=== PATIENT | male | born 1980 | race Caucasian/White ===

== ENCOUNTER 2024-11-18 12:22 | Inpatient (IN) | payer OTHER ==
[~2024-11-18 12:22] MED LIST: NICOTINE 14 MG/24 HOURS TOPICAL PATCH TD SCH
[2024-11-18 13:07] VITALS: BMI 26.6
[2024-11-18] MEDS ORDERED: methaDONE HCL 10 MG TABLET (FOR DETOX USE ONLY) PO PRN (13:12)
[2024-11-18] MEDS ORDERED: MAG HYDROX/AL HYDROX/SIMETH 30 ML UNIT-DOSE CUP PO PRN (13:12)
[2024-11-18] MEDS ORDERED: NALOXONE (NARCAN) HCL 4 MG/0.1 ML SPRAY NS PRN (13:12)
[2024-11-18] MEDS ORDERED: BISMUTH SUBSALICYLATE 524 MG/30 ML PO PRN (13:12)
[2024-11-18] MEDS ORDERED: BENZONATATE 200 MG CAPSULE PO PRN (13:12)
[2024-11-18] MEDS ORDERED: MAGNESIUM HYDROX 2400MG/30ML ORAL SUSPENSION 30 ML CUP PO PRN (13:12)
[2024-11-18] MEDS ORDERED: IBUPROFEN 600 MG TABLET (FP) PO PRN (13:12)
[2024-11-18] MEDS ORDERED: DICYCLOMINE HCL 10 MG CAPSULE PO PRN (13:12)
[2024-11-18] MEDS ORDERED: guaiFENesin 600 MG TABLET.ER (FP) PO PRN (13:12)
[2024-11-18] MEDS ORDERED: BENZOCAINE/MENTHOL (CHLORASEPTIC ) LOZENGE MM PRN (13:12)
[2024-11-18] MEDS ORDERED: IBUPROFEN 400 MG TABLET (FP) PO PRN (13:12)
[2024-11-18] MEDS ORDERED: POLYETHYLENE GLYCOL (HEALTHYLAX) 3350 17 GM PACKET PO PRN (13:12)
[2024-11-18] MEDS ORDERED: ACETAMINOPHEN 325 MG TABLET (FP) PO PRN (13:12)
[2024-11-18] MEDS ORDERED: LOPERAMIDE HCL 2 MG CAPSULE PO PRN (13:12)
[2024-11-18] MEDS ORDERED: PRENATAL VITAMINS W/ FOLIC ACID TABLET (FP) PO ONE (13:39)
[2024-11-18] MEDS ORDERED: NICOTINE 14 MG/24 HOURS TOPICAL PATCH TD ONE (13:39)
[2024-11-18] MEDS ORDERED: methaDONE HCL 10 MG TABLET (FOR DETOX USE ONLY) ONE (13:39)
[2024-11-18] MEDS: methaDONE HCL 10 MG TABLET (FOR DETOX USE ONLY) PO ONE (13:44)
[2024-11-18] MEDS: PRENATAL VITAMINS W/ FOLIC ACID TABLET (FP) PO SCH (13:44)
[2024-11-18] MEDS: cloNIDine HCL 0.1 MG TABLET PO PRN (16:59)
[2024-11-18] MEDS: hydrOXYzine PAMOATE 25 MG CAPSULE (FP) PO PRN (16:59)
[2024-11-18] MEDS: ONDANSETRON *ODT* 4 MG TABLET SL PRN (17:01)
[2024-11-18] MEDS: diazePAM 5 MG TABLET PO PRN (18:16)
[2024-11-18] MEDS: TRIMETHOBENZAMIDE HCL 200MG/2ML INJ IM ONE (20:09)
[2024-11-18] MEDS: LORazepam 2 MG/ML SDV VIAL IM ONE (21:58)
[2024-11-18] MEDS: MELATONIN 5 MG TABLETS PO SCH (23:27)
[2024-11-18] MEDS: THIAMINE 100 MG TABLET PO SCH (23:28)
[2024-11-19] MEDS: PROCHLORPERAZINE INJECTION 10 MG/2 ML VIAL IM PRN (06:35)
[2024-11-19] MEDS: METHOCARBAMOL 500 MG TABLET PO PRN (09:31)
[2024-11-19] MEDS: methaDONE HCL 10 MG TABLET (FOR DETOX USE ONLY) PO ONE (09:32)
[2024-11-19] MEDS: NICOTINE 14 MG/24 HOURS TOPICAL PATCH TD SCH (13:12)
[2024-11-19 15:20] LABS: HEMATOCRIT 43.9 % (35.4-49); HEMOGLOBIN 14.1 GM/dL (11.7-16.9); MCH 28.6 pg (25.7-33.7); MCHC 32.2 g/dl (32.0-35.9); MEAN PLT VOLUME 10.4 fl (7.5-11.1); PLATELET COUNT 262 10^3/uL (134-434); RBC 4.93 M/mm3 (4.00-5.60); RDW 14.8 % (11.9-15.9); WHITE BLOOD COUNT 7.8 K/mm3 (4.0-10.0)
[2024-11-19 15:27] LABS: POTASSIUM 4.2 mmol/L (3.5-5.1)
[2024-11-19 15:28] LABS: CALCIUM 9.8 mg/dL (8.5-10.1)
[2024-11-19 15:29] LABS: BLOOD UREA NITROGEN 22.8 mg/dL (7-18)
[2024-11-19 15:32] LABS: ALBUMIN 4.3 g/dl (3.4-5.0)
[2024-11-19 15:34] LABS: TOT PROT 8.2 g/dl (6.4-8.2)
[2024-11-19 15:36] LABS: BILIRUBIN,TOTAL 1.1 mg/dL (0.2-1)
[2024-11-19] MEDS: MIRTAZAPINE 15 MG TABLET (FP) PO SCH (22:45)
[2024-11-19] MEDS: SUVOREXANT 10 MG TABLET PO PRN (22:45)
[2024-11-20] MEDS: hydrOXYzine PAMOATE 25 MG CAPSULE (FP) PO ONE (02:46)
[2024-11-20 06:50] VITALS: RESP 16
[2024-11-20 08:36] VITALS: BP 136/63; PULSE 68; TEMP 97.8
[2024-11-20] MEDS: TRIMETHOBENZAMIDE HCL 200MG/2ML INJ IM ONE (09:30)
[2024-11-21] MEDS ORDERED: methaDONE HCL 10 MG TABLET (FOR DETOX USE ONLY) PO ONE (10:00)
[2024-11-23] MEDS ORDERED: methaDONE HCL 10 MG TABLET (FOR DETOX USE ONLY) PO ONE (10:00)
== END 2024-11-20 10:18 | disposition left against medical advice (07) | DRG 770 ==
LOC: YASAS 12:22 → Y6N 13:50
PROVIDERS: ADMIT Allergy & Immunology; ATTEND Allergy & Immunology
PROC: HZ2ZZZZ Detoxification Services for Substance Abuse Treatment (ICD-10-PCS; principal; 2024-11-18)
DX: F11.23 Opioid dependence with withdrawal (principal); F14.10 Cocaine abuse, uncomplicated; F17.210 Nicotine dependence, cigarettes, uncomplicated; F19.282 Other psychoactive substance dependence with psychoactive substance-induced sleep disorder
CPT/HCPCS: 36415; 80053; 80305; 80307; 85027; 86780; 93005; 93010; Q0162